=== PATIENT | male | born 1960 | race Caucasian/White ===

== ENCOUNTER 2017-11-14 02:14 | Observation (INO) ==
--- NOTE | 2017-11-14 02:21 | Emergency Department Note ---
Disposition Clinical Impression: Fall Qualifiers: Encounter type: initial encounter Qualified Code(s): W19.XXXA - Unspecified fall, initial encounter Back pain Qualifiers: Back pain location: thoracic back pain Chronicity: unspecified Back pain laterality: midline Qualified Code(s): M54.6 - Pain in thoracic spine Chest pain Qualifiers: Chest pain type: unspecified Qualified Code(s): R07.9 - Chest pain, unspecified Disposition: Admitted As Inpatient Condition: Fair General Adult HPI - General Stated complaint: fall Time Seen by Provider: 11/14/17 02:19 Source: patient, EMS Mode of arrival: EMS Limitations: no limitations Nursing Notes Reviewed: Yes Vital Signs Reviewed: Yes - History of Present Illness HPI Narrative: 57-year-old male presents via EMS after concerns for a fall. Patient states that he tripped walking across the lawn. Patient does admit to alcohol use this evening. Patient states that he did have chest pain that since resolved. Reports the pain was on the right side of his chest and was present after he fell. Patient denies any specific prodromal symptoms. States that he tripped. Patient denies any abdominal pain. No shortness of breath. Patient reports chronic back pain this does not appear to be significantly worse than prior. Patient denies hitting his head but is intoxicated clinically. Denies numbness or tingling of the extremities. No lower leg weakness. - Related Data Home Medications Medication Instructions Recorded Confirmed Diazepam [Valium] 5 mg PO HS 12/20/14 11/14/17 Losartan [Cozaar] 25 mg PO DAILY 12/20/14 11/14/17 Metoprolol [Lopressor] 50 mg PO BID 12/20/14 11/14/17 Pravastatin Sodium [Pravachol] 80 mg PO DAILY 12/20/14 11/14/17 Tiotropium [Spiriva] 18 mcg IH 0700 12/20/14 11/14/17 Albuterol Sulfate [Albuterol 2 puff IH Q4H PRN 11/17/15 11/14/17 Inhaler] Budesonide/Formoterol 160/4.5 2 puff IH BIDR 11/17/15 11/14/17 [Symbicort 160/4.5] Previous Rx's Medication Instructions Recorded Cyanocobalamin (B-12) [Vitamin B12] 1,000 mcg PO DAILY #30 tablet 11/18/15 Nystatin [Nystatin Suspension] 100,000 units PO QID #120 ml 09/16/17 Magic Mouthwash [Magic Mouthwash 10 ml PO QID PRN #240 ml 09/23/17 BLM] HYDROcodone/Acet 5/325 mg [[place] 1 tab PO Q6H PRN 30 Days #120 tab 10/19/17 5-325 mg] Allergies Allergy/AdvReac Type Severity Reaction Status Date / Time No Known Allergies Allergy Verified 10/19/17 09:26 All systems ED: reviewed and negative except as stated. Constitutional: Denies: fever Cardiovascular: Reports: chest pain Respiratory: Reports: dyspnea Gastrointestinal: Denies: abdominal pain, nausea, vomiting Past Medical History - Past Medical History Source: patient Medical history: Reports: COPD, coronary artery disease, diabetes, hyperlipidemia, hypertension, myocardial infarction Surgical history: Reports: coronary bypass (CABG) Psychiatric history: Reports: anxiety - Social History Smoking Status: Current every day smoker Smokeless Tobacco Status: No Alcohol use: Reports: heavy Drug use: Reports: marijuana Physical Exam - General Limitations: no limitations General appearance: alert, in no apparent distress, appears intoxicated - Head Head exam: atraumatic - Eye Eye exam: Present: normal appearance, PERRL, EOMI. Absent: miosis, mydriasis - ENT ENT exam: normal exam - Neck Neck exam: Present: trachea midline, other (Arrives in cervical spine precautions) - Chest Chest inspection: Present: normal inspection, symmetric chest wall rise - Respiratory Respiratory exam: Absent: respiratory distress, prolonged expiratory phase - Cardiovascular Cardiovascular exam: Present: regular rate, normal rhythm. Absent: systolic murmur - Abdominal Exam Abdominal exam: Present: soft, Non-Tender, other (No evidence of trauma or bruising) - Extremities Exam Extremities exam: Present: normal inspection. Absent: pedal edema - Expanded Lower Extremity Exam Neurovascular/Tendon exam: Present: normal capillary refill - Back Exam Back exam: Present: normal inspection - Neurological Exam Neurological exam: Present: alert, oriented X3, CN II-XII intact - Skin Skin exam: Present: warm, dry, intact, normal color Course Course Narrative: Patient seen and evaluated upon arrival. Patient does appear clinically intoxicated and does not admit to alcohol use this evening. Patient does have a history of ACS is complaining of chest pain. At this point it is unclear whether the patient suffered a syncopal episode or whether this was mechanical fall. Patient was complaining of chest pain however the patient's intoxicated stable for a history. Patient will get basic labs including a troponin. Patient will get EKG chest x-ray. Patient also get CT imaging of the head C-T and L-spine. - Reevaluation(s) Reevaluation #1: Patient's cervical collar was cleared. Patient denies any midline neck tenderness. No numbness or paresthesias. Patient's is at bedside and provides additional history. States the patient did have a witnessed fall. No LOC. Patient noted be complaining of chest pain following the fall. However given the patient's history, the patient will be admitted for serial troponins and resolution of his intoxication. Time: 04:04 Vital Signs Temperature 97.4 F L 11/14/17 02:20 Pulse Rate 73 11/14/17 02:20 Respiratory Rate 20 11/14/17 02:20 Blood Pressure 128/100 11/14/17 02:20 O2 Sat by Pulse Oximetry 96 11/14/17 02:20 Temperature 97.4 F L 11/14/17 02:20 Pulse Rate 75 11/14/17 05:18 Respiratory Rate 18 11/14/17 05:18 Blood Pressure 111/69 11/14/17 05:18 O2 Sat by Pulse Oximetry 96 11/14/17 05:18 Oxygen Delivery Oxygen Delivery Room Air Medical Decision Making - [facility] Narrative Medical decision making narrative: 57-year-old male with history of etoh and presents for evaluation of a fall and chest pain. Initially, the patient history is difficult to elucidate. Patient did have a fall however was difficult to discern whether the patient had chest pain prior to the fall. Patient had imaging of the head and entire spine which shows no acute abnormalities with notable chronic changes. Patient pain appears to be worse with direct palpation of the chest are given the patient's vague history and history about alcoholism the patient would likely need further evaluation with serial troponins and clinical exam when sober. Patient had some abnormalities initially noted on EKG which were changed from prior EKGs from 2012. Patient's cervical spine was cleared and the ED. Given this patient's history as well as the fall the patient will be admitted to hospital service for further evaluation and management. Patient was given thiamine as well as folate. - Lab Data Lab results reviewed: Yes I reviewed the patient's lab results. Result diagrams: 11/14/17 03:47 11/14/17 03:47 Lab Results 11/14/17 11/14/17 11/14/17 Range/Units 03:47 03:47 03:47 WBC 6.4 (4.3-11.1) K/mcL RBC 4.71 (4.19-5.50) M/mcL Hgb 17.0 H (12.9-16.9) g/dL Hct 48.1 (37.5-50.1) % MCV 102.1 H (83.0-100.0) fL MCH 36.1 H (28.0-33.3) pg MCHC 35.3 (31.6-35.5) g/dL RDW 13.0 (11.5-14.5) % Plt Count 228 (140-400) K/mcL MPV 9.5 (9.4-12.4) fL Immature Gran % 0.5 (0-4) % Seg Neutrophils % 63.5 % Lymphocytes % 24.4 % Monocytes % 5.4 % Eosinophils % 5.4 % Basophils % 0.8 % Neutrophils # 4.1 (1.6-8.9) K/mcL Lymphocytes # 1.6 (0.6-4.6) K/mcL Monocytes # 0.4 (0.0-1.3) K/mcL Eosinophils # 0.4 (0.0-0.6) K/mcL Basophils # 0.1 (0.0-0.2) K/mcL PT (9.4-12.1) Seconds INR Sodium 141 (136-145) mEq/L Potassium 3.8 (3.5-5.1) mEq/L Chloride 108 H (98-107) mEq/L Carbon Dioxide 23 (23-29) mEq/L BUN 4 L (6-20) mg/dL Creatinine 0.49 L (0.70-1.30) mg/dL Est GFR ( Amer) > 60 (> 60) Est GFR (Non-Af Amer) > 60 (> 60) BUN/Creatinine Ratio 8 (6-26) Glucose 91 (70-105) mg/dL Calculated Osmolality 288 (280-300) Calcium 9.2 (8.6-10.3) mg/dL Phosphorus 4.1 (2.7-4.5) mg/dL Magnesium 2.2 (1.6-2.6) mg/dL Total Bilirubin 0.4 (0.3-1.0) mg/dL Direct Bilirubin 0.1 (0.0-0.2) mg/dL Indirect Bilirubin 0.3 (0.0-1.2) mg/dL AST 17 (13-39) Units/L ALT 11 (7-52) Units/L Alkaline Phosphatase 65 (34-104) Units/L Troponin I < 0.03 (< 0.04) ng/mL B-Natriuretic Peptide 41 (Less than 100) pg/mL Serum Total Protein 7.5 (6.4-8.9) g/dL Albumin 4.6 (3.5-5.7) g/dL Globulin 2.9 (2.4-3.5) g/dL Albumin/Globulin Ratio 1.6 (1.1-2.2) Ethyl Alcohol 308 H (Less than 10) mg/dL 11/14/17 Range/Units 03:47 WBC (4.3-11.1) K/mcL RBC (4.19-5.50) M/mcL Hgb (12.9-16.9) g/dL Hct (37.5-50.1) % MCV (83.0-100.0) fL MCH (28.0-33.3) pg MCHC (31.6-35.5) g/dL RDW (11.5-14.5) % Plt Count (140-400) K/mcL MPV (9.4-12.4) fL Immature Gran % (0-4) % Seg Neutrophils % % Lymphocytes % % Monocytes % % Eosinophils % % Basophils % % Neutrophils # (1.6-8.9) K/mcL Lymphocytes # (0.6-4.6) K/mcL Monocytes # (0.0-1.3) K/mcL Eosinophils # (0.0-0.6) K/mcL Basophils # (0.0-0.2) K/mcL PT 11.6 (9.4-12.1) Seconds INR 1.0 Sodium (136-145) mEq/L Potassium (3.5-5.1) mEq/L Chloride (98-107) mEq/L Carbon Dioxide (23-29) mEq/L BUN (6-20) mg/dL Creatinine (0.70-1.30) mg/dL Est GFR ( Amer) (> 60) Est GFR (Non-Af Amer) (> 60) BUN/Creatinine Ratio (6-26) Glucose (70-105) mg/dL Calculated Osmolality (280-300) Calcium (8.6-10.3) mg/dL Phosphorus (2.7-4.5) mg/dL Magnesium (1.6-2.6) mg/dL Total Bilirubin (0.3-1.0) mg/dL Direct Bilirubin (0.0-0.2) mg/dL Indirect Bilirubin (0.0-1.2) mg/dL AST (13-39) Units/L ALT (7-52) Units/L Alkaline Phosphatase (34-104) Units/L Troponin I (< 0.04) ng/mL B-Natriuretic Peptide (Less than 100) pg/mL Serum Total Protein (6.4-8.9) g/dL Albumin (3.5-5.7) g/dL Globulin (2.4-3.5) g/dL Albumin/Globulin Ratio (1.1-2.2) Ethyl Alcohol (Less than 10) mg/dL - Radiology Data Radiology results reviewed: Yes I reviewed the patient's radiology results. Head CT 11/14/17 02:20 IMPRESSION: No acute intracranial abnormality. No change from prior head CT on 11/17/2015. Tiny remote infarcts are again noted in the high right frontal lobe, right occipital lobe and left cerebellar hemisphere. D/ / Marco A Cobos MD / Marco A Cobos MD Interpreting Provider: Marco A Cobos MD Cervical Spine CT 11/14/17 02:32 IMPRESSION: No acute fracture or subluxation. Stable appearance of the cervical spine from 11/08/2015. D/ / Marco A Cobos MD / Marco A Cobos MD Interpreting Provider: Marco A Cobos MD Thoracic Spine CT 11/14/17 02:32 IMPRESSION: Diffuse bony demineralization. No definite evidence of acute fracture or subluxation. Severe degenerative disease at L5-S1. Partial visualization of a distended bladder. D/ / Marco A Cobos MD / Marco A Cobos MD Interpreting Provider: Marco A Cobos MD Lumbar Spine CT 11/14/17 02:33 IMPRESSION: Diffuse bony demineralization. No definite evidence of acute fracture or subluxation. Severe degenerative disease at L5-S1. Partial visualization of a distended bladder. D/ / Marco A Cobos MD / Marco A Cobos MD Interpreting Provider: Marco A Cobos MD Chest X-Ray 11/14/17 02:34 IMPRESSION: 1. Minimal bibasilar atelectasis. 2. Suspected trace right pleural effusion. 3. Pulmonary vascular congestion and/or chronic interstitial change. D/ / Mohan Salas MD / Mohan Salas MD Interpreting Provider: Mohan Salas MD - EKG Data EKG #1 EKG attestation: Yes I reviewed and interpreted this EKG. EKG shows normal: sinus rhythm Rate: normal Rhythm: NSR [place]/QRS: normal Q waves: aVR, v1, v2 T wave inversions noted in: aVR Interpretation: no acute changes, nonspecific ST-T wave changes S.B.A.R. - S.B.A.R. Situation: Demographics Background: Presenting Complaint Assessment: Vital Signs, Course and respsone to treatment, Patient/Family Expectation Recommendation: Barrier(s) to disposition, Recommendation based on pending studies, treatments, or consults S.B.A.R. Report Given to: Dr. Álvarez S.B.A.RAl Repor Time: 04:43 Attestation Statement - Attestation Attestation: I examined this patient and my medical decision-making was reviewed with the Resident Physician. I agree with the documented findings, disposition and treatment plan as described except to the extent set forth below. Findings consistent with alcohol intoxication as well as fall and chest pain. The patient was found outside on the ground and arrived in full C-spine precautions. C-spine is now cleared however remains intoxicated with intermittent chest pain. We will proceed with admission for ACS rule out and clearance of mental status.
[2017-11-14] MEDS ORDERED: Tdap (Boostrix) Vaccine 0.5 ML SYRINGE IM ONE (02:46)
[2017-11-14 04:04] LABS: Basophils # 0.1 K/mcL (0.0-0.2); Basophils % 0.8 %; Eosinophils # 0.4 K/mcL (0.0-0.6); Eosinophils % 5.4 %; Hematocrit 48.1 % (37.5-50.1); Immature Granulocytes % 0.5 % (0-4); Lymphocytes # 1.6 K/mcL (0.6-4.6); Lymphocytes % 24.4 %; Mean Corpuscular HGB Conc 35.3 g/dL (31.6-35.5); Mean Corpuscular Hemoglobin 36.1 pg (28.0-33.3); Mean Corpuscular Volume 102.1 fL (83.0-100.0); Mean Platelet Volume 9.5 fL (9.4-12.4); Monocytes # 0.4 K/mcL (0.0-1.3); Monocytes % 5.4 %; Neutrophils # 4.1 K/mcL (1.6-8.9); Platelet Count 228 K/mcL (140-400); Red Blood Count 4.71 M/mcL (4.19-5.50); Segmented Neutrophils % 63.5 %
[2017-11-14] MEDS ORDERED: Aspirin 81 MG TAB.CHEW PO ONE (04:06)
[2017-11-14 04:11] LABS: Prothrombin Time 11.6 Seconds (9.4-12.1)
[2017-11-14 04:24] LABS: BUN/Creatinine Ratio 8 (6-26); Blood Urea Nitrogen 4 mg/dL (6-20); Calcium 9.2 mg/dL (8.6-10.3); Carbon Dioxide 23 mEq/L (23-29); Chloride 108 mEq/L (98-107); Ethanol 308 mg/dL (Less than 10); Glucose 91 mg/dL (70-105); Osmolality,Calculated 288 (280-300); Potassium 3.8 mEq/L (3.5-5.1); Sodium 141 mEq/L (136-145); eGFR For Non-African Americans > 60 (> 60)
[2017-11-14 04:25] LABS: Troponin I < 0.03 ng/mL (< 0.04)
[2017-11-14] MEDS ORDERED: Thiamine (B-1) 100 MG TABLET PO ONE (04:31)
[2017-11-14] MEDS ORDERED: Folic Acid 1 MG TABLET PO ONE (04:31)
[2017-11-14] MEDS ORDERED: 0.9 % Sodium Chloride 1,000 ML IVC ONE (04:41)
[2017-11-14 04:48] LABS: Alanine Aminotransferase 11 Units/L (7-52); Albumin 4.6 g/dL (3.5-5.7); Albumin/Globulin Ratio 1.6 (1.1-2.2); Alkaline Phosphatase 65 Units/L (34-104); Aspartate Amino Transferase 17 Units/L (13-39); Bilirubin,Direct 0.1 mg/dL (0.0-0.2); Bilirubin,Indirect 0.3 mg/dL (0.0-1.2); Bilirubin,Total 0.4 mg/dL (0.3-1.0); Globulin 2.9 g/dL (2.4-3.5); Magnesium 2.2 mg/dL (1.6-2.6); Phosphorous 4.1 mg/dL (2.7-4.5); Total Protein 7.5 g/dL (6.4-8.9)
[2017-11-14] MEDS ORDERED: 0.9 % Sodium Chloride 1,000 ML IVC SCH (06:30)
[2017-11-14] MEDS ORDERED: *HR* LORazepam 2 MG/ML VIAL IVP PRN ×3 (06:30)
[2017-11-14] MEDS ORDERED: Naloxone 0.4 MG/ML INJ IVP PRN (06:34)
[2017-11-14] MEDS ORDERED: Acetaminophen 325 MG TABLET PO PRN (06:34)
[2017-11-14] MEDS ORDERED: Ondansetron 4 MG/2 ML VIAL IVP PRN (06:35)
[2017-11-14] MEDS ORDERED: *HR* HYDROcodone/Acet 5/325 mg TABLET PO PRN (06:37)
[2017-11-14] MEDS ORDERED: Magic Mouthwash 10 ML UD Cup PO PRN (06:37)
[2017-11-14] MEDS ORDERED: Albuterol 2.5 MG/3 ML NEBULIZER IH PRN (06:40)
--- NOTE | 2017-11-14 06:46 | Internal Med History&Physical ---
Date of Encounter: 11/14/17 Time of Encounter: 06:44 (\\) Internal Medicine - H&P: HPI Chief complaint: "Fell and now chest hurts" Admitted From: Emergency Dept Plans for Post Hospital Care: Home History of present illness: Mr. Feng is a 57 year old male with CAD s/p CABG who presented to ED after a fall after getting out of his truck. He states that he was walking across yard when he tripped and fell. witnessed fall and states that he fell forward. Patient denies hitting head or LOC. He has drank 6 x 12 oz beers today. He usually drinks 2-3 x 12 oz beers daily. After his fall where he fell on his chest, he started having right-sided chest pain. He states this pain is different from his previous CAD chest pain. Initial troponin in ED was WNL. EKG should NSR with non-specific ST-T wave changes unchanged from previous. Imaging was all negative in the ED. Ethyl alcohol level was 308 in ED. During my examination, patient denies fever, chills, chest pain, SOB, nausea, vomiting , abdominal pain, changes in bladder, or changes in bowels. His only complaint at this time is right chest wall pain. Past Med Surg Social Fam HX - Past Medical History Attestation: Yes The following information was validated with the patient. Source: patient Medical history: COPD, coronary artery disease, diabetes, hyperlipidemia, hypertension, myocardial infarction Psychiatric history: anxiety - Past Surgical History Surgical History: coronary bypass (CABG) Additional surgical history: Right carotid artery endardectomy - Social History Smoking Status: Current every day smoker Smokeless Tobacco Status: No Alcohol use: heavy Drug use: marijuana - Family History Father Hx Family Cardiac Disorders: Yes - Additional Family History Additional family history: Family history verified with patient. Internal Medicine - H&P: Meds Diazepam [Valium] 5 mg PO HS 12/20/14 [History] Losartan [Cozaar] 25 mg PO DAILY 12/20/14 [History] Metoprolol [Lopressor] 50 mg PO BID 12/20/14 [History] Pravastatin Sodium [Pravachol] 80 mg PO DAILY 12/20/14 [History] Tiotropium [Spiriva] 18 mcg IH 0700 12/20/14 [History] Albuterol Sulfate [Albuterol Inhaler] 2 puff IH Q4H PRN 11/17/15 [History] Budesonide/Formoterol 160/4.5 [Symbicort 160/4.5] 2 puff IH BIDR 11/17/15 [ History] Cyanocobalamin (B-12) [Vitamin B12] 1,000 mcg PO DAILY #30 tablet 11/18/15 [Rx] Nystatin [Nystatin Suspension] 100,000 units PO QID #120 ml 09/16/17 [Rx] Magic Mouthwash [Magic Mouthwash BLM] 10 ml PO QID PRN #240 ml 09/23/17 [Rx] HYDROcodone/Acet 5/325 mg [[place] 5-325 mg] 1 tab PO Q6H PRN 30 Days #120 tab 07/04 [Rx] 3 Allergy/AdvReac Type Severity Reaction Status Date / Time No Known Allergies Allergy Verified 10/19/17 09:26 All Systems PM: A 10-system review of systems was performed and is negative for pertinent findings except as documented above in the HPI. - Constitutional Vitals: Temp Pulse Resp BP Pulse Ox 97.4 F L 75 18 111/69 96 11/14/17 02:20 11/14/17 05:18 11/14/17 05:18 11/14/17 05:18 11/14/17 05:18 General appearance: Present: cooperative, A&O X 3, morbidly obese, pleasant, no acute distress, answers questions appropriately - Head Head exam: Present: atraumatic, normocephalic - Eye Eye exam: Present: EOMI, PERRL. Absent: conjunctival injection, nystagmus, scleral icterus - ENT ENT exam: Present: mucous membranes moist, normal external ear exam, normal oropharynx - Neck Neck exam general surgery: Present: supple, trachea midline. Absent: lymphadenopathy, tenderness, thyromegaly - Respiratory Respiratory exam: Present: CTAB. Absent: accessory muscle use, rales, rhonchi, wheezes Additional comments: Normal WOB - Cardiovascular Cardiovascular exam: Present: RRR, +S1, +S2. Absent: diastolic murmur, gallop, rubs, systolic murmur Additional comments: No BLE edema - GI/Abdominal GI/Abdominal exam: Present: normal bowel sounds, soft. Absent: distended, hepatomegaly, mass, splenomegaly, tenderness - Neurological Exam Neurological exam: Present: alert, CN II-XII intact, oriented X3, no focal deficits, strengths equal and symetr throughout. Absent: altered, motor sensory deficit, facial droop, speech deficit - Psychiatric Psychiatric exam: Present: normal affect, normal mood. Absent: agitated, anxious, depressed - Skin Skin exam: Present: dry, intact, warm. Absent: cyanosis, rash Internal Med - H&P Results - Labs CBC & Chem 7: 11/14/17 03:47 11/14/17 03:47 - Assessment and plan (1) Chest pain Current Visit: Yes Status: Acute Assessment and plan: Patient with CAD s/p CABG x 3 many years ago. He had fall today with trauma to chest. He has contusion of right chest wall. Patient does not think this pain is like his previous CAD chest pain. Right chest is severe TTP. I have very low suspicion for ACS. Will admit for observation with telemetry. Trend troponin x 3. Treatment of chest contusion as per below. Qualifiers: Chest pain type: other chest pain Qualified Code(s): R07.89 - Other chest pain; R07.8 - Other chest pain (2) Alcohol intoxication Current Visit: Yes Status: Acute Assessment and plan: Start CIWA protocol with PRN ativan. Start PPI. Continue IVF. Continue multivitamin, thiamine, and folic acid. Counselled on safe alcohol consumption. Qualifiers: Complication of substance-induced condition: uncomplicated Qualified Code(s ): F10.920 - Alcohol use, unspecified with intoxication, uncomplicated (3) Fall Current Visit: Yes Status: Acute Assessment and plan: Fall precautions. Consult PT/OT. Qualifiers: Encounter type: initial encounter Qualified Code(s): W19.XXXA - Unspecified fall, initial encounter (4) Chest wall contusion Current Visit: Yes Status: Acute Assessment and plan: Start naproxen 500 mg BIDWM PRN pain. Continue home norco. Incentive spirometry. Qualifiers: Encounter type: initial encounter Laterality: right Qualified Code(s): S20.211A - Contusion of right front wall of thorax, initial encounter (5) CAD (coronary artery disease) Current Visit: Yes Status: Chronic Assessment and plan: Continue home medications. Qualifiers: Coronary Disease-Associated Artery/Lesion type: bypass graft, other Associated angina: without angina Qualified Code(s): I25.810 - Atherosclerosis of coronary artery bypass graft(s) without angina pectoris (6) COPD (chronic obstructive pulmonary disease) Current Visit: No Status: Chronic Assessment and plan: Continue home medications. Start albuterol nebs Q4H PRN SOB/wheezing. Qualifiers: COPD type: unspecified COPD Qualified Code(s): J44.9 - Chronic obstructive pulmonary disease, unspecified (7) DVT prophylaxis Current Visit: Yes Status: Acute Assessment and plan: Up to chair TID, ambulate TID, and SCDs. - Time Spent With Patient Total time spent is greater than 50% in coordination of care (as documented) at patient's floor/unit and/or counseling patient: less than 15 minutes
[2017-11-14] MEDS ORDERED: Tiotropium 18 MCG inhalation IH SCH (07:00)
[2017-11-14] MEDS ORDERED: Cyanocobalamin (B-12) 1,000 MCG TABLET PO SCH (09:00)
[2017-11-14] MEDS ORDERED: Folic Acid 1 MG TABLET PO SCH (09:00)
[2017-11-14] MEDS ORDERED: Nystatin SUSP 5 ML UD.LIQ PO SCH (09:00)
[2017-11-14] MEDS ORDERED: Vitamin B Complex/Vit C/Vit E 1 EACH TABLET PO SCH (09:00)
[2017-11-14] MEDS ORDERED: Thiamine (B-1) 100 MG TABLET PO SCH (09:00)
[2017-11-14] MEDS ORDERED: Budesonide/Formoterol 160/4.5 MDI IH SCH (10:00)
[2017-11-14 10:36] VITALS: BP 96/54
[2017-11-14 12:18] LABS: Amphetamine Screen,Urine Negative ng/mL (Cutoff=1000); Barbiturate Screen,Urine Negative ng/mL (Cutoff=200); Benzodiazepines Screen,Urine Positive ng/mL (Cutoff=200); Cannabinoid Screen,Urine Positive ng/mL (Cutoff = 50); Cocaine Screen,Urine Negative ng/mL (Cutoff= 300); Opiate Screen,Urine Positive ng/mL (Cutoff=300); Phencyclidine Screen,Urine Negative ng/mL (Cutoff=25)
--- NOTE | 2017-11-14 17:36 | Discharge Summary ---
Date of Encounter: 11/14/17 Time of Encounter: 17:32 - Discharge Diagnosis (1) COPD (chronic obstructive pulmonary disease) Status: Chronic Assessment and Plan: Continue home medications. Qualifiers: COPD type: unspecified COPD Qualified Code(s): J44.9 - Chronic obstructive pulmonary disease, unspecified (2) CAD (coronary artery disease) Status: Chronic Assessment and Plan: Continue home medications. Qualifiers: Coronary Disease-Associated Artery/Lesion type: bypass graft, other Associated angina: without angina Qualified Code(s): I25.810 - Atherosclerosis of coronary artery bypass graft(s) without angina pectoris (3) Fall Status: Acute Assessment and Plan: Fall precautions. Consult PT/OT. Qualifiers: Encounter type: initial encounter Qualified Code(s): W19.XXXA - Unspecified fall, initial encounter (4) Chest pain Status: Acute Qualifiers: Chest pain type: other chest pain Qualified Code(s): R07.89 - Other chest pain; R07.8 - Other chest pain (5) Alcohol intoxication Status: Acute Qualifiers: Complication of substance-induced condition: uncomplicated Qualified Code(s ): F10.920 - Alcohol use, unspecified with intoxication, uncomplicated (6) Chest wall contusion Status: Acute Qualifiers: Encounter type: initial encounter Laterality: right Qualified Code(s): S20.211A - Contusion of right front wall of thorax, initial encounter Hospital course: Mr. Feng is a 57 year old male - Time Spent with Patient Total time spent providing and/or coordinating discharge services: - Discharge Medications Home Medications: Diazepam [Valium] 5 mg PO HS 12/20/14 [History] Losartan [Cozaar] 25 mg PO DAILY 12/20/14 [History] Metoprolol [Lopressor] 50 mg PO BID 12/20/14 [History] Pravastatin Sodium [Pravachol] 80 mg PO DAILY 12/20/14 [History] Tiotropium [Spiriva] 18 mcg IH 0700 12/20/14 [History] Albuterol Sulfate [Albuterol Inhaler] 2 puff IH Q4H PRN 11/17/15 [History] Budesonide/Formoterol 160/4.5 [Symbicort 160/4.5] 2 puff IH BIDR 11/17/15 [ History] Cyanocobalamin (B-12) [Vitamin B12] 1,000 mcg PO DAILY #30 tablet 11/18/15 [Rx] HYDROcodone/Acet 5/325 mg [[place] 5-325 mg] 1 tab PO Q6H PRN 30 Days #120 tab 07/04 [Rx] Isosorbide MONOnitrate (24 HR) [Imdur] 30 mg PO DAILY 11/14/17 [History] Allergies/Adverse Reactions: 3 Allergy/AdvReac Type Severity Reaction Status Date / Time No Known Allergies Allergy Verified 10/19/17 09:26 Date of admission: 11/14/17 04:49 Primary care physician: Mark Gilliam MD Consults: 11/14/17 06:24 Consult to Occupational Therapy [CONS] Routine Comment: Evaluate, develop and implement POC Reason for Consult: Fall. Please evaluate, treat, and make rehab recommendations. Thanks. Does patient have active BEDREST order?: No Is patient medically & hemodynamically stable?: Yes Patient assessed for mobility or mobilized this visit?: No Consult to Physical Therapy [CONS] Routine Comment: Evaluate, develop and implement POC Reason for Consult: Fall. Please evaluate, treat, and make rehab recommendations. Thanks. Does patient have active BEDREST order?: No Is patient medically & hemodynamically stable?: Yes Patient assessed for mobility or mobilized this visit?: No - Constitutional Vitals: Temp Pulse Resp BP Pulse Ox 97.8 F 68 16 96/54 97 11/14/17 10:35 11/14/17 10:35 11/14/17 10:35 11/14/17 10:35 11/14/17 10:35 General appearance: Present: cooperative, A&O X 3, morbidly obese, pleasant, no acute distress, answers questions appropriately - Patient Status Disposition: Left Against Medical Advice Condition: Fair - Discharge Instructions Forms: ED Satisfaction Letter
--- NOTE | 2017-11-14 17:41 | Event Note ---
Date of Encounter: 11/14/17 Time of Encounter: 13:36 57 year old male patient got admitted this morning for right side chest pain after the fall. He also had elevated alcohol level. Initial troponin was negative. Patient got admitted to rule out any acute cardiac event and was planned for serial troponin in telemetry. Chest x-ray with mild right pleural effusion. Patient left AMA-decided all of a sudden. Nurse notified the attending physician but patient left AMA before getting seen. Patient is started in hospital only a few hours.
[2017-11-14] MEDS ORDERED: diazePAM 5 MG TABLET PO SCH (21:00)
--- NOTE | 2017-11-15 17:29 | Electrocardiograph Report ---
[address] [place], [place] [address] Test Date: 2017-11-14 Pat Name: Thompson Feng Department: 103 Room: 3B47 Gender: M Maintenance Associate: : [id number] Requested By: Harsha Cain Order Number: [id number] Reading MD: Harriet Hunt Measurements Intervals [place] Rate: 69 P: 80 NM: 150 QRS: 17 QRSD: 111 T: 83 QT: 379 QTc: 397 Interpretive Statements SINUS RHYTHM WITH SINUS ARRHYTHMIA SEPTAL MYOCARDIAL INFARCTION [40+ ms Q WAVE IN V1/V2], POSSIBLY RECENT Electronically Signed On 11-15-2017 17:27:59 EDT by Harriet Hunt
== END 2017-11-14 12:41 | disposition left against medical advice (07) ==
LOC: 3BNU 02:14 → EMEROO 02:14 → 3BNU 05:42
PROVIDERS: ADMIT Family Medicine; ATTEND Family Medicine

== ENCOUNTER 2020-10-31 02:46 | Observation (INO) ==
[2020-10-31 03:35] LABS: Basophils # 0.1 K/mcL (0.0-0.2); Basophils % 1.5 %; Eosinophils # 0.3 K/mcL (0.0-0.6); Eosinophils % 4.8 %; Hematocrit 40.5 % (37.5-50.1); Hemoglobin 14.6 g/dL (12.9-16.9); Immature Granulocytes % 0.4 % (0-4); Lymphocytes # 1.5 K/mcL (0.6-4.6); Lymphocytes % 27.8 %; Mean Corpuscular Hemoglobin 37.8 pg (28.0-33.3); Mean Corpuscular Volume 104.9 fL (83.0-100.0); Mean Platelet Volume 9.2 fL (9.4-12.4); Monocytes # 0.5 K/mcL (0.0-1.3); Monocytes % 8.2 %; Neutrophils # 3.1 K/mcL (1.6-8.9); Platelet Count 207 K/mcL (140-400); Red Blood Count 3.86 M/mcL (4.19-5.50); Red Cell Distribution Width 12.3 % (11.5-14.5); Segmented Neutrophils % 57.3 %; White Blood Count 5.5 K/mcL (4.3-11.1)
[2020-10-31 03:59] LABS: BUN/Creatinine Ratio 7 (6-26); Blood Urea Nitrogen 4 mg/dL (6-20); Calcium 8.6 mg/dL (8.6-10.3); Carbon Dioxide 23 mEq/L (23-29); Chloride 100 mEq/L (98-107); Glucose 106 mg/dL (70-105); Osmolality,Calculated 275 (280-300); Potassium 4.1 mEq/L (3.5-5.1); Sodium 134 mEq/L (136-145); eGFR For African Americans > 60 (> 60); eGFR For Non-African Americans > 60 (> 60)
[2020-10-31 04:00] LABS: Troponin I < 0.03 ng/mL (< 0.04)
[2020-10-31] MEDS ORDERED: Naloxone 0.4 MG/ML INJ IVP PRN (10:17)
[2020-10-31] MEDS ORDERED: Ondansetron 4 MG/2 ML VIAL IVP PRN (10:17)
[2020-10-31] MEDS ORDERED: Acetaminophen 325 MG TABLET PO PRN (10:17)
[2020-10-31] MEDS ORDERED: *HR* LORazepam 2 MG/ML VIAL IVP PRN ×3 (13:39)
[2020-10-31] MEDS ORDERED: Ipratropium/Albuterol Neb 3 ML IH PRN (14:47)
[2020-10-31] MEDS ORDERED: Fluticasone Propionate Nasal 50 MCG/SPRAY BOTTLE NS PRN (20:58)
[2020-10-31] MEDS ORDERED: traZODone 50 MG TABLET PO SCH (21:00)
[2020-10-31] MEDS ORDERED: *HR* HYDROcodone/Acet 5/325 mg TABLET PO ONE (21:19)
[2020-10-31] MEDS: Budesonide/Formoterol 160/4.5 1 PUFF INH IH SCH (22:31)
[2020-11-01 05:33] LABS: Basophils # 0.1 K/mcL (0.0-0.2); Eosinophils # 0.2 K/mcL (0.0-0.6); Eosinophils % 3.1 %; Hematocrit 44.1 % (37.5-50.1); Hemoglobin 15.6 g/dL (12.9-16.9); Immature Granulocytes % 0.3 % (0-4); Lymphocytes % 16.5 %; Mean Corpuscular HGB Conc 35.4 g/dL (31.6-35.5); Mean Corpuscular Hemoglobin 37.3 pg (28.0-33.3); Mean Corpuscular Volume 105.5 fL (83.0-100.0); Mean Platelet Volume 9.6 fL (9.4-12.4); Monocytes # 0.5 K/mcL (0.0-1.3); Monocytes % 7.8 %; Neutrophils # 4.4 K/mcL (1.6-8.9); Platelet Count 185 K/mcL (140-400); Red Blood Count 4.18 M/mcL (4.19-5.50); Red Cell Distribution Width 12.1 % (11.5-14.5); Segmented Neutrophils % 71.3 %; White Blood Count 6.2 K/mcL (4.3-11.1)
[2020-11-01 05:53] LABS: BUN/Creatinine Ratio 13 (6-26); Blood Urea Nitrogen 7 mg/dL (6-20); Calcium 8.8 mg/dL (8.6-10.3); Carbon Dioxide 24 mEq/L (23-29); Chloride 101 mEq/L (98-107); Glucose 94 mg/dL (70-105); Magnesium 2.1 mg/dL (1.6-2.6); Osmolality,Calculated 276 (280-300); Potassium 4.2 mEq/L (3.5-5.1); Sodium 134 mEq/L (136-145); eGFR For African Americans > 60 (> 60); eGFR For Non-African Americans > 60 (> 60)
[2020-11-01 06:43] VITALS: BP 152/83; PULSE 60; TEMP 98.1
[2020-11-01] MEDS ORDERED: *HR* Enoxaparin 40 MG/0.4 ML SYRINGE SQ SCH (07:00)
[2020-11-01] MEDS: Budesonide/Formoterol 160/4.5 1 PUFF INH IH SCH (07:21)
[2020-11-01 07:25] VITALS: O2SAT 97
[2020-11-01] MEDS ORDERED: Isosorbide MONOnitrate (24 HR) 30 MG TAB.ER.24H PO SCH (09:00)
[2020-11-01] MEDS ORDERED: Folic Acid 1 MG TABLET PO SCH (09:00)
[2020-11-01] MEDS ORDERED: Thiamine (B-1) 100 MG TABLET PO SCH (09:00)
== END 2020-11-01 11:14 | disposition home or self-care (01) ==
LOC: EMEROOARM 02:46 → 3BNU 02:46 → SUATTDRO 09:57 → 3BNU 10:54
PROVIDERS: ADMIT Pharmacist; ATTEND Nurse Practitioner